=== PATIENT | female | born 1950 | race Caucasian/White ===

== ENCOUNTER 2023-08-13 07:54 | Outpatient (CLI) | payer MEDICARE | END 2023-08-13 07:55 | disposition home or self-care (01) | LOC: BURCT 07:54 | PROVIDERS: ATTEND Internal Medicine Hematology & Oncology | DX: R91.8 Other nonspecific abnormal finding of lung field (principal); E85.9 Amyloidosis, unspecified | CPT/HCPCS: 36415; 71260; 82565 ==

== ENCOUNTER 2025-06-05 10:32 | Outpatient (CLI) | payer MEDICARE ==
[2025-06-05] MEDS ORDERED: Iopamidol 370 76% 100 ML VIAL ONE (10:59)
== END 2025-06-05 10:33 | disposition home or self-care (01) ==
LOC: BURCT 10:32
PROVIDERS: ATTEND Internal Medicine Hematology & Oncology
DX: R91.8 Other nonspecific abnormal finding of lung field (principal); I34.89 Other nonrheumatic mitral valve disorders; E85.81 Light chain (AL) amyloidosis
CPT/HCPCS: 71260; Q9967